=== PATIENT | male | born 2000 | race Hispanic/Latino ===

== ENCOUNTER 2022-05-18 14:35 | Inpatient (IN) | payer OTHER ==
[~2022-05-18] VITALS: Ht 165.1 cm; Wt 67.7 kg
[2022-05-18 15:27] LABS: HEMATOCRIT 41.3 % (42.0-52.0); HEMOGLOBIN 14.3 g/dl (13.5-17.5); MEAN CORPUSCULAR HGB CONC 34.6 g/dl (32.0-36.5); MEAN CORPUSCULAR VOLUME 95.4 fl (80.0-96.0); PLATELET COUNT, AUTOMATED 152 10^3/uL (150-450); RED BLOOD COUNT 4.33 10^6/uL (4.30-6.10); WHITE BLOOD COUNT 6.9 10^3/uL (4.0-10.0)
[2022-05-18] MEDS ORDERED: LEXA5TAB13 PO ×2 (15:32→22:34)
[2022-05-18 16:06] LABS: ACETAMINOPHEN LEVEL < 2.0 UG/ML (10.0-20.0); ALBUMIN 4.2 G/DL (3.2-5.2); ALT/SGPT 25 U/L (7.0-40); BILIRUBIN,DIRECT 0.2 MG/DL (<0.4); BILIRUBIN,TOTAL 0.7 MG/DL (0.3-1.2); BLOOD UREA NITROGEN 15 MG/DL (9-23); CALCIUM LEVEL 8.9 MG/DL (8.5-10.1); CARBON DIOXIDE LEVEL 27 MMOL/L (20-31); CHLORIDE LEVEL 104 MMOL/L (98-107); CK-MB VALUE MASS 1.2 NG/ML (<3.6); CPK CREATINE PHOSPHOKINASE 154 U/L (46-171); CREATININE FOR GFR 1.05 MG/DL (0.70-1.30); ETHYL ALCOHOL (ETHANOL) 0.003 % (0.000-0.010); GLOMERULAR FILTRATION RATE > 60.0 (>60); GLUCOSE, FASTING 91 MG/DL (60-100); MB/CK RELATIVE INDEX 0.77 (< OR =4); SODIUM LEVEL 140 MMOL/L (136-145); THYROID STIMULATING HORMONE 0.991 uIU/ML (0.55-4.78); TOTAL PROTEIN 6.5 G/DL (5.7-8.2)
[2022-05-18 16:12] LABS: RSV AMPLIFICATION NEGATIVE (NEGATIVE)
[2022-05-18 17:16] LABS: SALICYLATE LEVEL < 3.0 MG/DL (<30)
[2022-05-18 18:25] LABS: CK-MB VALUE MASS < 1.0 NG/ML (<3.6); CPK CREATINE PHOSPHOKINASE 147 U/L (46-171); MB/CK RELATIVE INDEX 0.68 (< OR =4)
[2022-05-18 19:02] LABS: AMPHETAMINES LEVEL URINE NEGATIVE (NEGATIVE); BARBITURATES URINE NEGATIVE (NEGATIVE); BENZODIAZEPINES URINE NEGATIVE (NEGATIVE); CANNABINOIDS URINE NEGATIVE (NEGATIVE); COCAINE METABOLITE URINE NEGATIVE (NEGATIVE); METHADONE URINE NEGATIVE (NEGATIVE); OPIATES URINE NEGATIVE (NEGATIVE); PHENCYCLIDINE URINE NEGATIVE (NEGATIVE)
[2022-05-18] MEDS ORDERED: PANT-23 PO (22:34)
[2022-05-19] MEDS ORDERED: PANT20TA6 PO (08:02)
[2022-05-19] MEDS ORDERED: HOME MED LIST COMPLETE! XX SCH (08:05)
[2022-05-20] MEDS ORDERED: ALBUTEROL 90 MCG/ACT 8GM HFA INHALER INH PRN (10:30)
[2022-05-20] MEDS ORDERED: LURASIDONE 20 MG TAB (LATUDA) PO SCH (21:00)
[2022-05-20] MEDS ORDERED: DOCUSATE SODIUM 100MG CAPSULE PO SCH (21:00)
[2022-05-20] MEDS ORDERED: ACETAMINOPHEN TAB 650MG DOSE (2X325MG) PO ONE (21:15)
[2022-05-20] MEDS: ESCITALOPRAM OXALATE 5MG TABLET (LEXAPRO) PO SCH (21:39)
[2022-05-21] MEDS ORDERED: VITAMIN D 1,000 INTERNATIONAL UNITS TABLET PO SCH (09:00)
[2022-05-21] MEDS ORDERED: FERROUS SULFATE 325MG TAB PO SCH (09:00)
[2022-05-21] MEDS ORDERED: ASCORBIC ACID 250 MG TAB PO SCH (09:00)
[2022-05-21] MEDS ORDERED: CETIRIZINE (ZyrTEC) 10 MG TAB PO SCH (09:00)
[2022-05-21] MEDS: PANTOPRAZOLE 20 MG TAB PO SCH (09:00)
[2022-05-21] MEDS: ESCITALOPRAM OXALATE 5MG TABLET (LEXAPRO) PO SCH (21:38)
[2022-05-21] MEDS ORDERED: IBUPROFEN 800 MG TAB PO ONE (22:50)
[2022-05-22] MEDS: PANTOPRAZOLE 20 MG TAB PO SCH (09:00)
[2022-05-22] MEDS: ESCITALOPRAM OXALATE 5MG TABLET (LEXAPRO) PO SCH (21:13)
[2022-05-23] MEDS: PANTOPRAZOLE 20 MG TAB PO SCH (09:00)
[2022-05-23] MEDS ORDERED: MOM 30ML SUSPENSION UDC PO PRN (10:30)
[2022-05-23] MEDS ORDERED: IBUPROFEN 400MG TAB PO PRN (10:30)
[2022-05-23] MEDS ORDERED: MAALOX 30 ML SUSP *UDC PO PRN (10:30)
[2022-05-23] MEDS ORDERED: traZODone 50 MG TAB PO PRN (10:30)
[2022-05-23] MEDS ORDERED: diphenhydrAMINE 25MG CAP PO PRN (10:30)
[2022-05-23 11:30] LABS: RSV AMPLIFICATION NEGATIVE (NEGATIVE)
[2022-05-23] MEDS: NICOTINE 21MG/24HR 1 EA TRANSDERMAL TD SCH (11:39)
[2022-05-23 13:46] VITALS: BP 129/61
[2022-05-23] MEDS: ESCITALOPRAM OXALATE 5MG TABLET (LEXAPRO) PO SCH (21:03)
[2022-05-24 06:26] VITALS: BP 139/82
[2022-05-24] MEDS: NICOTINE 21MG/24HR 1 EA TRANSDERMAL TD SCH (09:00)
[2022-05-24] MEDS: PANTOPRAZOLE 20 MG TAB PO SCH (09:18)
[2022-05-24] MEDS ORDERED: hydrOXYzine 50 MG TAB PO PRN (11:50)
[2022-05-24] MEDS: LIDOCAINE 5% (LIDODERM) PATCH TD SCH (12:24)
[2022-05-24 16:10] VITALS: BP 124/59
[2022-05-24] MEDS ORDERED: MIRTAZAPINE 15 MG TAB PO SCH (21:00)
[2022-05-24] MEDS: ESCITALOPRAM OXALATE 5MG TABLET (LEXAPRO) PO SCH (21:20)
[2022-05-25 06:07] VITALS: BP 132/60
[2022-05-25] MEDS ORDERED: HYDR50TA70 PO (08:05)
[2022-05-25] MEDS ORDERED: LEXA5TAB13 PO (08:05)
[2022-05-25] MEDS ORDERED: NICO21PAT TD (08:05)
[2022-05-25] MEDS ORDERED: LIDO5TD TD (08:05)
[2022-05-25] MEDS ORDERED: MIRT-10 PO (08:05)
[2022-05-25] MEDS: LIDOCAINE 5% (LIDODERM) PATCH TD SCH (09:00)
[2022-05-25] MEDS: NICOTINE 21MG/24HR 1 EA TRANSDERMAL TD SCH (09:00)
[2022-05-25] MEDS: PANTOPRAZOLE 20 MG TAB PO SCH (09:00)
== END 2022-05-25 11:48 | disposition home or self-care (01) | DRG 880 ==
LOC: M ED 14:35 → M ED INP 05-23 10:27 → M PSY 05-23 15:16
PROVIDERS: ADMIT Student in an Organized Health Care Education/Training Program; ATTEND Student in an Organized Health Care Education/Training Program
DX: F41.8 Other specified anxiety disorders (principal); R45.851 Suicidal ideations; R00.1 Bradycardia, unspecified; I49.49 Other premature depolarization; F40.10 Social phobia, unspecified; Z63.4 Disappearance and death of family member; M54.9 Dorsalgia, unspecified; G89.29 Other chronic pain; M19.90 Unspecified osteoarthritis, unspecified site; F17.290 Nicotine dependence, other tobacco product, uncomplicated; Z20.822 Contact with and (suspected) exposure to COVID-19; Z79.899 Other long term (current) drug therapy; R32 Unspecified urinary incontinence